=== PATIENT | female | born 1995 | race Caucasian/White ===

== ENCOUNTER 2023-04-10 03:17 | Inpatient (IN) ==
[2023-04-10] MEDS ORDERED: Nalbuphine 10 MG/ML 1 ML VIAL IV PRN (03:30)
[2023-04-10] MEDS ORDERED: Buffered Lidocaine 1% SYRIN 1 ml INTRADERM ONE (03:30)
[2023-04-10] MEDS ORDERED: Lactated Ringers 1000 ml BAG 1,000 ML IV ONE ×2 (03:30→04:56)
[2023-04-10] MEDS ORDERED: Promethazine INJ(RESTRICTED) 25 MG/ML 1 ml VIAL IV PRN (03:30)
[2023-04-10] MEDS ORDERED: Lactated Ringers 1000 ml BAG 1,000 ML IV SCH ×3 (04:00→10:00)
[2023-04-10 04:10] LABS: ABS Lymphocytes 2.2 10^3/uL (1.0-4.8); ABS Monocytes 0.8 10^3/uL (0.0-0.9); ABS Neutrophils 16.2 10^3/uL (1.5-7.6); ABS Nucleated RBC 0.01 10^3/ul; Eosinophil % 0.1 %; Hematocrit 38.4 % (35-45); Hemoglobin 12.7 g/dL (11.5-14.3); Lymphocyte % 11.6 %; Mean Corpuscular Volume 75.8 fL (80-97); Mean Platelet Volume 7.1 fL (7.5-11.2); Nucleated Red Blood Cells % 0.1 /100 WBC (0.0-0.4); Platelet Count 367 10^3/uL (150-450); Red Blood Count 5.07 10^6/uL (3.63-4.92); Red Cell Distribution Width 15.9 % (12-17); White Blood Count 19.3 10^3/uL (3.8-11.8)
[2023-04-10] MEDS ORDERED: OBEPIDURAL (200 ML) 200 ML EPIDURAL ONE (04:14)
[2023-04-10] MEDS ORDERED: Lidocaine 1.5% EPI 1:200,000 30 ML SDV ONE (04:15)
[2023-04-10] MEDS ORDERED: Bupivacaine 0.25% SDV PF 10 ML VIAL INJ ONE (04:22)
[2023-04-10] MEDS ORDERED: fentaNYL 100 mcg/2 ml 50 MCG/ML VIAL ONE (04:22)
[2023-04-10] MEDS: Phenylephrine 40 mcg/mL 10mL (400mcg) SYRINGE IV PUSH PRN ×2 (04:52→06:25)
[2023-04-10] MEDS ORDERED: Sodium Citrate/Citric Acid LIQ 15 ML UDC PO PRN (04:56)
[2023-04-10] MEDS ORDERED: Phenylephrine 40 mcg/mL 10mL (400mcg) SYRINGE IV PUSH PRN (04:56)
[2023-04-10] MEDS ORDERED: OBEPIDURAL (200 ML) 200 ML EPIDURAL SCH (05:00)
[2023-04-10 05:41] LABS: Urine Appearance Cloudy; Urine Bilirubin Negative (Negative); Urine Blood 1+ (Negative); Urine Color Yellow; Urine Glucose Negative (Negative); Urine Ketones 1+ (Negative); Urine Nitrite Negative (Negative); Urine Protein 1+(30 mg/dL) (Negative); Urine Specific Gravity 1.023 (1.002-1.030); Urine Urobilinogen Negative (Negative)
[2023-04-10 05:44] LABS: Urine Bacteria Absent (Absent); Urine Red Blood Cell 3+(>10/hpf) (Absent); Urine Squamous Epithelial Cell Present (Absent); Urine White Blood Cell Trace(0-5/hpf) (Absent)
[2023-04-10 05:58] LABS: Urine Benzodiazepine Screen None Detected (None Detect); Urine Opiates Screen None Detected (None Detect)
[2023-04-10] MEDS ORDERED: Oxytocin in LR 20,000 MILLI.UNIT/1,000 ML BAG IV SCH ×2 (07:15→09:30)
[2023-04-10] MEDS ORDERED: Measles, Mumps,Rubella VACC 0.5 ML/VIAL SUBCUT ONE (09:24)
[2023-04-10] MEDS ORDERED: Witch Hazel PAD JAR TOPICAL PRN (09:24)
[2023-04-10] MEDS ORDERED: Dibucaine 1% OINT 28.35 GM TUBE PR PRN (09:24)
[2023-04-11 07:22] LABS: ABS Lymphocytes 2.4 10^3/uL (1.0-4.8); ABS Monocytes 0.9 10^3/uL (0.0-0.9); ABS Neutrophils 11.9 10^3/uL (1.5-7.6); ABS Nucleated RBC 0.01 10^3/ul; Eosinophil % 0.2 %; Hematocrit 29.5 % (35-45); Hemoglobin 9.9 g/dL (11.5-14.3); Lymphocyte % 15.8 %; Mean Corpuscular Hgb Conc 33.6 g/dL (31-36); Mean Corpuscular Volume 77.6 fL (80-97); Mean Platelet Volume 6.8 fL (7.5-11.2); Nucleated Red Blood Cells % 0.1 /100 WBC (0.0-0.4); Platelet Count 223 10^3/uL (150-450); Red Cell Distribution Width 15.6 % (12-17); White Blood Count 15.3 10^3/uL (3.8-11.8)
[2023-04-11 09:17] VITALS: BP 131/71
[2023-04-11] MEDS ORDERED: Measles, Mumps,Rubella VACC 0.5 ML/VIAL ONE (15:54)
== END 2023-04-11 16:49 | disposition home or self-care (01) | DRG 560 ==
LOC: MCHOBOUT 03:17 → MCHOB 03:26
PROVIDERS: ADMIT Advanced Practice Midwife; ATTEND Midwife